=== PATIENT | female | born 1980 | race Caucasian/White ===

== ENCOUNTER → 2020-07-29 | Day surgery (SDC) | payer OTHER ==
[~2020-07-29] MED LIST: 0.9 % SODIUM CHLORIDE 10 ML VIAL. ONE; BUPIVACAINE MPF 0.25% 10 ML VIAL. ONE; CHOL400C PO; DEXAMETHASONE SOD PHOS 10 MG/ML VIAL. ONE; DULO20CA50 PO; IOHEXOL 300 MG/ML 50 ML VIAL. ONE; LIDOCAINE 1% PF 30 ML VIAL. ONE; MELO15TA23 PO
[2020-07-29 13:27] VITALS: BP 126/85
== END | disposition home or self-care (01) ==
LOC: SURG 12:39
PROVIDERS: ATTEND Anesthesiology
DX: M54.16 Radiculopathy, lumbar region (principal); M48.061 Spinal stenosis, lumbar region without neurogenic claudication; M54.81 Occipital neuralgia; G43.709 Chronic migraine without aura, not intractable, without status migrainosus; Z79.899 Other long term (current) drug therapy
CPT/HCPCS: 64483; J1100; J2001; J3490; Q9967

== ENCOUNTER → 2020-09-23 | Outpatient (CLI) | payer OTHER ==
[2020-09-23 13:48] VITALS: BP 119/73
== END | disposition home or self-care (01) ==
LOC: SURG 12:53
PROVIDERS: ATTEND Anesthesiology
DX: M54.16 Radiculopathy, lumbar region (principal); G47.30 Sleep apnea, unspecified; M19.90 Unspecified osteoarthritis, unspecified site; M48.061 Spinal stenosis, lumbar region without neurogenic claudication; M47.812 Spondylosis without myelopathy or radiculopathy, cervical region; M54.81 Occipital neuralgia; G43.709 Chronic migraine without aura, not intractable, without status migrainosus; M54.14 Radiculopathy, thoracic region; Z72.89 Other problems related to lifestyle; Z79.899 Other long term (current) drug therapy
CPT/HCPCS: 64483; J1100; J3490; Q9967; 64484

== ENCOUNTER → 2020-11-25 | Day surgery (SDC) | payer OTHER ==
[~2020-11-25] MED LIST changes: -0.9 % SODIUM CHLORIDE 10 ML VIAL. ONE; -DEXAMETHASONE SOD PHOS 10 MG/ML VIAL. ONE; -IOHEXOL 300 MG/ML 50 ML VIAL. ONE
[2020-11-25 14:24] VITALS: BP 118/66
== END | disposition home or self-care (01) ==
LOC: SURG 13:32
PROVIDERS: ATTEND Anesthesiology
DX: M47.816 Spondylosis without myelopathy or radiculopathy, lumbar region (principal); G47.30 Sleep apnea, unspecified; G43.709 Chronic migraine without aura, not intractable, without status migrainosus; M19.90 Unspecified osteoarthritis, unspecified site; Z79.899 Other long term (current) drug therapy; Z87.442 Personal history of urinary calculi
CPT/HCPCS: 64493; 64494; J3490

== ENCOUNTER → 2020-12-01 | Outpatient (CLI) | payer OTHER ==
[2020-11-25 14:24] VITALS: BP 118/66
[~2020-12-01] MED LIST changes: -BUPIVACAINE MPF 0.25% 10 ML VIAL. ONE; -LIDOCAINE 1% PF 30 ML VIAL. ONE
--- NOTE | 2020-12-01 11:40 | RAD ---
INDICATION: Reason: KIDNEY STONES / Spl. Instructions: / History: . COMPARISON: None. TECHNIQUE: Axial CT images obtained through the abdomen and pelvis without contrast. One or more of the following individualized dose reduction techniques were utilized for this examinat ion: 1. Automated exposure control; 2. Adjustment of the mA and/or kV according to patient size; 3 . Use of iterative reconstruction technique. FINDINGS: Abdominal aorta is not aneurysmal. Small fat-containing umbilical hernia. Free fluid is seen within t he pelvis. He subcentimeter low-density right lobe of liver lesion too small to characterize but typically benig n in a patient of this age. Limited assessment of pancreas without contrast. Spleen prominent in size. Mild left adrenal gland thickening. No hydronephrosis. Urinary bladder is partially distended. No definite radiopaque obstructive ureter stone. There is a couple low-density structures within the bilateral ovaries with the largest on the left me asuring up to 27 mm. No periappendiceal inflammatory changes. The appendix measures up to about 5 mm. No dilated loops of bowel to suggest obstruction. Degenerative changes the spine. Multilevel central canal and neural foraminal stenosis. IMPRESSION: * No hydronephrosis or radiopaque obstructive ureter stone. * No evidence of bowel obstruction or appendicitis. * Cystic structure at the left greater than right ovary which could be from cyst or dominant follicl e. There is some free fluid within the pelvis as well. Electronically signed by: Lonny Jacobs MD (12/01/2020 11:37 AM) [id number]
== END ==
LOC: CT 09:46
PROVIDERS: ATTEND Urology
DX: N20.0 Calculus of kidney (principal); K42.9 Umbilical hernia without obstruction or gangrene; N32.89 Other specified disorders of bladder; K76.9 Liver disease, unspecified; M48.07 Spinal stenosis, lumbosacral region; M47.817 Spondylosis without myelopathy or radiculopathy, lumbosacral region
CPT/HCPCS: 74176